=== PATIENT | male | born 1975 | race Caucasian/White ===

== ENCOUNTER 2021-05-06 11:44 | Emergency (ER) | payer OTHER ==
[~2021-05-06] VITALS: Ht 177.8 cm; Wt 86.6 kg
[2021-05-06 12:14] VITALS: BP 161/81
--- NOTE | 2021-05-06 12:22 | NUR ---
patient to lobby via w/c
--- NOTE | 2021-05-06 13:30 | NUR ---
45 Y/O M WC'D TO BED 2, C/O BACK PAIN X1 MONTH. +NV YESTERDAY, PT STATES HE THINKS HE HAS KIDNEY STONES AGAIN , HE HAD SIMILAR S/S LAST TIME. PT STATES HE IS HAVING TROUBLE URINATING AND HAS A FREQ. URGE TO GO. 10/29 PAIN TOOK IBUPROFEN 800 MG WITHOUT RELIEIF AROUND 10AM. pmh: kidney failure, kidney stones NKDA
--- NOTE | 2021-05-06 14:13 | NUR ---
DR DANIEL AT BEDSIDE FOR MSE
[2021-05-06] MEDS ORDERED: NACL 0.9% 1,000 ML IV SCH (14:20)
[2021-05-06] MEDS ORDERED: MORPHINE SULFATE 4 MG/ML SYR IVP ONE (14:20)
[2021-05-06] MEDS ORDERED: KETOROLAC 15 MG/ML VIAL IVP ONE ×2 (14:20→16:25)
[2021-05-06] MEDS ORDERED: ONDANSETRON 4 MG/2 ML VIAL IVP ONE (14:20)
[2021-05-06 15:03] LABS: BASOPHILS % (AUTO) 0.4 % (0.0-2.0); EOSINOPHILS # (AUTO) 0.2 K/uL (0-0.4); HEMATOCRIT 40.5 % (36-52); HEMOGLOBIN 13.9 g/dL (12.0-18.0); LYMPHOCYTES # (AUTO) 1.6 K/uL (2.0-11.5); LYMPHOCYTES % (AUTO) 17.2 % (20.5-51.1); MEAN CORPUSCULAR HEMOGLOBIN 32 pg (27-31); MEAN CORPUSCULAR HGB CONC 34 g/dL (33-37); MEAN CORPUSCULAR VOLUME 92.9 fL (80-94); MONOCYTES # (AUTO) 0.7 K/uL (0.8-1.0); MONOCYTES % (AUTO) 7.6 % (1.7-9.3); NEUTROPHILS # (AUTO) 6.6 K/uL (1.8-7.7); NEUTROPHILS % (AUTO) 72.8 % (42.2-75.2); PLATELET COUNT (AUTO) 154 K/uL (140-450); RED BLOOD CELL COUNT(AUTO) 4.36 MIL/uL (4.20-6.10); RED CELL DISTRIBUTION WIDTH 14.1 % (11.6-13.7); WHITE BLOOD COUNT (AUTO) 9.1 K/uL (4.8-10.8)
--- NOTE | 2021-05-06 15:12 | NUR ---
PT TAKEN TO CT SCAN VIA PARKER WITH PLASTER PATTERN CASTER
[2021-05-06 15:30] LABS: ALBUMIN 3.4 g/dL (3.4-5.0); ANION GAP 9.4 (8-16); CREATININE 1.1 mg/dL (0.6-1.3); POTASSIUM 3.4 mmol/L (3.5-5.1); TOTAL BILIRUBIN 0.4 mg/dL (0.0-1.0)
[2021-05-06] MEDS ORDERED: POTASSIUM CHLORIDE 10 MEQ TABER PO ONE (15:50)
[2021-05-06] MEDS ORDERED: TAMSULOSIN 0.4 MG CAP PO SCH (16:25)
[2021-05-06] MEDS ORDERED: ONDA-188 PO (17:40)
[2021-05-06] MEDS ORDERED: TAMS0.4C96 PO (17:40)
[2021-05-06] MEDS ORDERED: IBUP-2213 PO (17:40)
[2021-05-06] MEDS ORDERED: ACET-5629 PO ×3 (17:40→17:41)
[2021-05-06] MEDS ORDERED: CEPH-588 PO (17:40)
--- NOTE | 2021-05-06 18:30 | NUR ---
Patient discharged with v/s stable. Written and verbal after care instructions given and explained. Patient alert, oriented and verbalized understanding of instructions. Ambulatory with steady gait. All questions addressed prior to discharge. ID band removed. Patient advised to follow up with PMD. Rx of KEFLEX,IBUPROFEN, ZOFRAN,FLOWMAX given. Patient educated on indication of medication including possible reaction and side effects. Opportunity to ask questions provided and answered.
[2021-05-06 18:31] VITALS: BP 141/86
[2021-05-06] MEDS ORDERED: TOMOMETER 1 DEV DEV MC ONE (18:34)
== END 2021-05-06 18:30 | disposition home or self-care (01) ==
LOC: MED 11:44
DX: N13.2 Hydronephrosis with renal and ureteral calculous obstruction (principal); F17.210 Nicotine dependence, cigarettes, uncomplicated; F12.90 Cannabis use, unspecified, uncomplicated; Z87.442 Personal history of urinary calculi; Z79.899 Other long term (current) drug therapy; Z71.6 Tobacco abuse counseling
CPT/HCPCS: 36415; 74176; 80053; 81002; 82150; 83690; 85025; 96361; 96374; 96375; 96376; 99285; J1885; J2270; J2405; J7030

== ENCOUNTER 2021-06-10 12:19 | Emergency (ER) | payer OTHER ==
[~2021-06-10] VITALS: Ht 177.8 cm; Wt 88.9 kg
[~2021-06-10 12:19] MED LIST: ACET-5629 PO; CEPH-588 PO; IBUP-2213 PO; ONDA-188 PO; TAMS0.4C96 PO
[2021-06-10 12:27] VITALS: BP 149/97
--- NOTE | 2021-06-10 12:38 | NUR ---
PANDA CABRERA AT BEDSIDE EVALUATING PT
[2021-06-10] MEDS ORDERED: CYCLOBENZAPRINE 10 MG TAB PO ONE (12:40)
[2021-06-10] MEDS ORDERED: KETOROLAC 30 MG/ML VIAL IM ONE (12:40)
--- NOTE | 2021-06-10 12:48 | NUR ---
XRAY at bedside
--- NOTE | 2021-06-10 13:11 | NUR ---
45yo m c/o worsening left shoulder pain x 3 days. pain 10/10, throbbing/constant, radiating to left chest and left shoulder blade aggravated by lifting arm. pt states he recalls doing push ups and felt a pull on his left shoulder. (+)numbness, left arm. no meds taken. pmh: back surgery, kidney stones medS: none nka
[2021-06-10] MEDS ORDERED: ACET-8386 PO (13:18)
--- NOTE | 2021-06-10 13:20 | NUR ---
Pt states + relief to pain; 09/28.
--- NOTE | 2021-06-10 13:45 | NUR ---
The patient's care was reviewed and supervised by Juan David Plummer RN.
--- NOTE | 2021-06-10 13:47 | NUR ---
Patient discharged with v/s stable. Written and verbal after care instructions ABOUT SHOULDER PAIN given and explained. Patient alert, oriented and verbalized understanding of instructions. Ambulatory with steady gait. All questions addressed prior to discharge. ID band removed. Patient advised to follow up with PMD. Rx of HYDROCODONE given. Opportunity to ask questions provided and answered.
== END 2021-06-10 13:47 | disposition home or self-care (01) ==
LOC: MED 12:19
DX: M25.512 Pain in left shoulder (principal); Z98.890 Other specified postprocedural states; Z79.891 Long term (current) use of opiate analgesic; Z79.899 Other long term (current) drug therapy; Z79.1 Long term (current) use of non-steroidal anti-inflammatories (NSAID); Z79.2 Long term (current) use of antibiotics
CPT/HCPCS: 73030; 96372; 99283; J1885

== ENCOUNTER 2021-10-02 15:26 | Emergency (ER) | payer OTHER ==
[~2021-10-02] VITALS: Ht 175.3 cm; Wt 88.9 kg
[~2021-10-02 15:26] MED LIST changes: +ACET-8386 PO
[2021-10-02 15:29] VITALS: BP 143/101
--- NOTE | 2021-10-02 15:34 | NUR ---
DR CROOK IN TRIAGE FOR EVAL
[2021-10-02] MEDS ORDERED: AMOX1TAB8 PO (15:37)
[2021-10-02] MEDS ORDERED: IBUP-2213 PO (15:37)
[2021-10-02] MEDS ORDERED: ACET-8386 PO (15:37)
[2021-10-02] MEDS ORDERED: KETOROLAC 30 MG/ML VIAL IM ONE (15:40)
--- NOTE | 2021-10-02 15:41 | NUR ---
46 Y/O MALE BIB SELF C/O OF LEFT JAW SWELLING AND TOOTHACHE. PER PT HE HAD A SWOLLEN LEFT JAW TODAY. C/O OF DIFFICULTY SWALLOWING. SPEAKING IN FULL SENTENCES. NKA PMH: DENIES
--- NOTE | 2021-10-02 16:11 | NUR ---
Patient discharged with v/s stable. Written and verbal after care instructions given and explained. Patient alert, oriented and verbalized understanding of instructions. Ambulatory with steady gait. All questions addressed prior to discharge. ID band removed. Patient advised to follow up with PMD. Rx of NORCO 5-325, AMOX-CLAV 875-125 given. Patient educated on indication of medication including possible reaction and side effects. Opportunity to ask questions provided and answered.
== END 2021-10-02 16:11 | disposition home or self-care (01) ==
LOC: MED 15:26
DX: K04.7 Periapical abscess without sinus (principal); R68.84 Jaw pain; Z79.899 Other long term (current) drug therapy
CPT/HCPCS: 96372; 99283; J1885

== ENCOUNTER 2021-10-04 02:00 | Emergency (ER) | payer OTHER ==
[~2021-10-04] VITALS: Ht 177.8 cm; Wt 74.8 kg
[~2021-10-04 02:00] MED LIST changes: +AMOX1TAB8 PO
--- NOTE | 2021-10-04 02:04 | NUR ---
ABIMAEL EXAMINING PT ON EMS GURNEY
[2021-10-04 02:05] VITALS: BP 146/98
--- NOTE | 2021-10-04 02:07 | NUR ---
PT TAKEN TO ER BED 12
[2021-10-04] MEDS ORDERED: FAMOTIDINE 20 MG TAB PO ONE (02:10)
[2021-10-04] MEDS ORDERED: FAMOTIDINE 20 MG/2 ML VIAL IVP ONE (02:10)
[2021-10-04] MEDS ORDERED: diphenhydrAMINE 50 MG/ML VIAL IM ONE (02:10)
[2021-10-04] MEDS ORDERED: methylPREDNISolone SS 125 MG/2 ML VIAL IM ONE (02:10)
--- NOTE | 2021-10-04 02:26 | NUR ---
46 YO M BIBA FROM HOME WITH C/C OF DIFFICULTY BREATHING XHOUR. PT STATES HE FEELS HE IS CHOKING. NO THROAT SWELLING OR TONGUE SWELLING PRESENT. PT IS SATING AT 99%RA. PT STATES HE WAS HERE YESTERDAY FOR A TOOTH INFECTION AND FEELS LIKE IT IS GETTING WORSE AND THATS WHY HE FEELS THIS WAY. STATES "YOU GUYS SHOULD HAVE DONE AN IV YESTERDAY". PT STATES HE IS TAKING HIS MEDS HE WAS PRESCRIBED. PT IS INTENTIONALLY HYPERVENTILATING AND STATES I CANT BREATH. REDIRECTED PT TO SLOW HIS BREATHING. DENIES HX RX AND ALLERGIES
[2021-10-04] MEDS ORDERED: FAMO-90 PO (03:15)
[2021-10-04] MEDS ORDERED: PRED20TA5 PO (03:15)
[2021-10-04] MEDS ORDERED: DIPH25TA53 PO (03:15)
[2021-10-04 03:52] VITALS: BP 146/98
--- NOTE | 2021-10-04 03:52 | NUR ---
Patient discharged with v/s stable. Written and verbal after care instructions given and explained. Patient alert, oriented and verbalized understanding of instructions. Ambulatory with steady gait. All questions addressed prior to discharge. ID band removed. Patient advised to follow up with PMD. Rx of PEPCID, BENDARYL, PREDNISONE given. Patient educated on indication of medication including possible reaction and side effects. Opportunity to ask questions provided and answered.
== END 2021-10-04 03:52 | disposition home or self-care (01) ==
LOC: MED 02:00
DX: F41.9 Anxiety disorder, unspecified (principal); R06.02 Shortness of breath
CPT/HCPCS: 96374; 96375; 99284; J1200; J2930; J3490